=== PATIENT | female | born 2000 | race Caucasian/White ===

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

== ENCOUNTER 2022-02-01 14:05 | Emergency (ER) | payer OTHER, SELFPAY ==
[2022-02-01 15:15] VITALS: BP 98/81; PULSE 81; RESP 18; TEMP 37.2; O2SAT 99; BMI 30.2
--- NOTE | 2022-02-01 15:48 | HMH.EDUTC ---
[facility] [place] Disposition Clinical Impression: COVID-19 Disposition: Home, Self-Care Condition on Discharge: Good Instructions: DI for COVID-19 (Suspected or Confirmed ) Additional Instructions: COVID test results should be available later tonight or in the morning Please quarantine - per CDC guidelines quarantine for 5 days from onset of symptoms (01/29) and then wear a mask for an additional 5 days Referrals: Alan Kohli MD [Primary Care Provider] - Forms: Work/School Release Time of Disposition: 15:55 Medical Decision Making - Andrei Inquiry Pt receiving controlled substance: No Vital Signs: 02/01/22 15:15 Temperature 98.9 F Temperature Source Oral Pulse Rate [Left Brachial] 81 Respiratory Rate 18 Blood Pressure [Left Arm] 98/81 L Blood Pressure Mean [Left Arm] 86 Blood Pressure Source [Left Arm] Automatic Cuff Blood Pressure Position [Left Arm] Sitting 02 Sat by Pulse Oximetry 99 Oxygen Delivery Method Room Air Orders (Tests/Meds): ORDERS Category Date Time Status Covid-19 Nasal PCR ([facility]) Routine Lab 02/01/22 15:17 Received [facility] [place] HPI - General Stated complaint: Cough,runny nose SOA,fever yster Time Seen by Provider: 02/01/22 15:48 Mode of Arrival: Ambulatory Source of Information: Patient Limitations: No Limitations Description of Symptoms (Recalled from Triage Doc. by RN): PATIENT STATES SHE HAD A POSITIVE COVID TEST AT HOME AND NEEDS A PCR FOR WORK HEENT Symptoms (Recalled from RN notes): No Resp Symptoms (Recalled from RN notes): No Skin Symptoms (Recalled from RN notes): No MS Symptoms (Recalled from RN notes): No Functional Status (Recalled from RN notes): WNL - History of Present Illness Provider Complaint: Patient has had cough, runny nose, shortness of breath, fever since 01/29. Took home COVID19 test on 01/29 that was negative; repeated test on 01/30 and it was positive. Employer is requiring documented PCR test. She has been taking Mucinex and states she is feeling ok. Onset (ago): day(s) (3) Location: chest Relieving factors: none Exacerbating factors: none Associated symptoms: cough Treatments prior to arrival: other (Mucinex) - Related Data Home Medications Medication Instructions Recorded Confirmed Levothyroxine Sodium 50 mcg PO DAILY 10/06/20 07/09/21 [Levothyroxine 50mcg (0.05mg) Tab] Previous Rx's Medication Instructions Recorded meloxicam 7.5 mg tablet 7.5 mg PO ONCE #30 tab 06/04/21 Allergies Allergy/AdvReac Type Severity Reaction Status Date / Time No Known Allergies Allergy Verified 07/09/21 13:45 - Worker's Comp Is this a Worker's Comp case?: No [facility] History - Hepatitis A Screen Attestation statement:: This patient has been screened for Hepatitis A risk factors. I have reviewed the patient's past medical history: Yes Medical History: Denies:: Cancer, Diabetes Mellitus Type 1, Diabetes Mellitus Type 2, MRSA Amputation: No Fractures: No - Social History Smoking Status: Never smoker Alcohol Intake: never Occupational Status: other Family Hx:: No significant family history ROS Obtained: Yes All systems reviewed & no additional complaints - Constitutional Constitutional: Reports body ache, Reports chills, Reports fever(s) - ENT Ears, Nose, Mouth, and Throat: Reports nasal congestion, Reports sore throat - Respiratory Respiratory: Reports cough Physical Exam - General General appearance: alert, in no apparent distress - Head Head exam: normocephalic - Eye Eye exam: Present: PERRL - ENT ENT exam: Present: normal oropharynx, TM's normal bilaterally - Neck Neck exam: Present: normal inspection. Absent: lymphadenopathy - Chest Chest inspection: Present: normal inspection, symmetric chest wall rise - Respiratory Respiratory exam: Present: normal lung sounds bilaterally. Absent: respiratory distress, wheezes - Cardiovascular Cardiovascular exam: Present: regular rate, normal rhythm - Neuro
[2022-02-01 15:57] VITALS: BP 98/81; PULSE 81; RESP 18; TEMP 37.2; O2SAT 99
== END 2022-02-01 16:01 | disposition home or self-care (01) ==
PROVIDERS: Emergency Provider Physician Assistant; PCP Internal Medicine Adolescent Medicine
DX: U07.1 COVID-19 (principal)
CPT/HCPCS: 99212; C9803; G0463; U0003; U0005